=== PATIENT | female | born 1995 | race Caucasian/White ===

== ENCOUNTER 2025-04-13 20:29 | Emergency (ER) | payer MEDICAID, OTHER ==
[~2025-04-13] VITALS: Ht 167.6 cm; Wt 89.4 kg
[2025-04-13 21:24] VITALS: BP 105/65; TEMP 98.7
[2025-04-13] MEDS ORDERED: SULF1TAB48 PO (21:33)
[2025-04-13 21:38] VITALS: O2SAT 98
== END 2025-04-13 21:39 | disposition home or self-care (01) ==
LOC: ER 20:32
DX: L03.113 Cellulitis of right upper limb (principal); L03.116 Cellulitis of left lower limb